=== PATIENT | male | born 1970 | race Caucasian/White ===

== ENCOUNTER 2016-11-25 13:11 | Emergency (ER) | payer OTHER, SELFPAY ==
[~2016-11-25 13:11] MED LIST: Iopamidol 370 76% 100 ML VIAL ONE; Iopamidol 370 76% 50 ML VIAL FS ONE
[2016-11-25 13:31] LABS: Bilirubin Negative (Negative); Blood, Urine Negative (Negative); Clarity Clear (Clear); Glucose, Urine (Dipstick) Negative (Negative); Leukocyte Negative (Negative); Nitrite Negative (Negative); Protein, Urine (Dipstick) Negative (Neg-Trace); Specific Gravity, Urine 1.015 (1.005-1.030); Urobilinogen 0.2 mg/dL (0.2-1.0); pH, Urine 5.5 (5.0-9.0)
[2016-11-25] MEDS ORDERED: Ketorolac Tromethamine 60 MG/2 ML VIAL ONE (13:40)
[2016-11-25] MEDS ORDERED: HYDROcodone/Acetaminophen 10/325 mg Tablet ONE (13:40)
[2016-11-25 14:53] LABS: #Eosinphils 0.1 thou/uL (0.0-0.7); #Lymphocytes 1.7 thou/uL (1.20-3.40); #Monocytes 0.5 thou/uL (0.11-0.59); #Neutrophils 5.6 thou/uL (1.40-6.50); %Basophils 0.5 % (0.0-1.0); %Eosinophils 1.4 % (0.0-10.0); %Lymphocytes 21.5 % (21.0-51.0); %Monocytes 6.7 % (0.0-10.0); %Neutrophils 69.9 % (42.0-75.0); Hemoglobin 15.5 g/dL (14.0-18.0); Mean Corpuscular HGB CONC 32.7 g/dL (32.0-36.0); Mean Corpuscular Hemoglobin 30.4 pg (27.0-31.0); Platelet Count 287 thou/uL (130-400); RBC Distribution Width 12.7 % (11.5-14.5)
[2016-11-25 15:12] LABS: ALT (SGPT) 14 U/L (0-55); AST (SGOT) 13 U/L (5-34); Albumin 4.3 g/dL (3.5-5.0); Alkaline Phosphatase 63 U/L (40-150); Anion Gap 11 mmol/L (10-20); BUN (Urea Nitrogen) 15 mg/dL (8.9-20.6); Bilirubin, Total 0.3 mg/dL (0.2-1.2); Calc. Creatinine Clearance 0 mL/min (70-130); Calcium 9.4 mg/dL (7.8-10.44); Carbon Dioxide 29 mmol/L (22-29); Chloride 104 mmol/L (98-107); Estimated GFR-MDRD Greater than 90; Globulin 3.4 g/dL (2.4-3.5); Glucose 94 mg/dL (70-105); Lipase 34 U/L (8-78); Potassium 4.8 mmol/L (3.5-5.1); Protein, Total 7.7 g/dL (6.0-8.3); Sodium 139 mmol/L (136-145)
[2016-11-25] MEDS ORDERED: Sodium Chloride 0.9% 100 ML ONE (17:38)
[2016-11-25] MEDS ORDERED: Piperacillin/Tazobactam 3.375 GM VIAL ONE (17:38)
--- NOTE | 2016-11-25 22:00 | CT ---
CT ABDOMEN AND PELVIS WITHOUT CONTRAST 11/25/[address] of the abdomen and pelvis was done initially without oral or IV contrast. Because the find ings on this study, a subsequent study with contrast was done. On this portion of the study, axial s lices were acquired, then coronal reconstructions were done. An area of linear scarring or atelectas is is seen in the left lung base. There are no effusions. The liver is a bit generous in size, but no space occupying lesions of concern were found. The splee n is normal in size. A calcification is seen in the liver. The kidneys show no sign of mass or hydro nephrosis. No renal calculi were seen. The area around the head of the pancreas is rather prominent. Because no contrast was given, I canno t separate out if this is an opacified bowel or pathology in the pancreatic head. Because of this, f urther workup is needed. There is no sign of adrenal mass. The aorta shows no aneurysm. The bowel pattern is nonspecific with no distended loops to suggest obstruction. There is a conside rable amount of fecal material in the colon. No free air or free fluid was seen. No gross inflammato ry changes were seen around bowel. CT of the pelvis showed no pelvic masses, fluid collections, or other acute changes. The urinary zoe dder wall is mildly thickened but is uniform in nature and might be due to the bladder being only pa rtially distended. IMPRESSION: 1. Mild constipation. 2. Prominence of the area around the pancreatic head. See contrast CT to follow. 3. No evidence of urinary tract obstruction. POS: HOME
--- NOTE | 2016-11-25 22:09 | CT ---
CT ABDOMEN AND PELVIS WITH CONTRAST 11/25/[address] of the abdomen and pelvis was done with both oral and IV contrast following the initial no ncontrast scan that showed questionable findings around the pancreatic head. Venous phase and arteri al phase postcontrast images were obtained in the axial plane. Coronal reconstructions of venous pha se images were subsequently done. Comparison is made with the noncontrast study done immediately prior to it. The lung bases are clear except for some linear scarring or atelectasis in the left base. The liver is generous in size, but contain no space occupying lesions. A subcentimeter cyst is suggested in th e left lobe. The spleen is not enlarged. Regarding the pancreas, I do not see any evidence of mass. The area of prominence around the pancrea tic head on the noncontrast study seems to be a combination of unopacified bowel, a generous size pa ncreas overall, and prominent vasculature in the region. The portal vein is rather large but no defe cts are seen within it. Thus, no pathology here was appreciated. No calcifications were seen in the gallbladder. The kidneys showed no solid mass or hydronephrosis, but there does appear to be a cyst in the lower portion of the left kidney. There are quite a few air fluid levels in small bowel which are arranged in a nonspecific fashion. This is more typical of an ileus than an obstruction. No loo ps are greatly distended. There is a large amount of fecal material in the colon, however. There wer e no convincing findings of diverticulitis. No free air or free fluid was seen. CT of the pelvis showed no pelvic masses, fluid collections or inflammatory changes. The urinary zoe dder is much better distended on this study and the wall is less thick. IMPRESSION: 1. The area of prominence around the pancreatic head is shown to be due to unopacified structur es. No pancreatic mass was seen. 2. Nonspecific bowel gas pattern with mild constipation. POS: HOME
== END 2016-11-25 18:20 | disposition home or self-care (01) ==
LOC: BURERS 13:11
DX: K57.92 Diverticulitis of intestine, part unspecified, without perforation or abscess without bleeding (principal); K57.00 Diverticulitis of small intestine with perforation and abscess without bleeding; F17.210 Nicotine dependence, cigarettes, uncomplicated
CPT/HCPCS: 74176; 74177; 80053; 81003; 83690; 85025; 96361; 96365; 96372; A4216; J1885; J2543; J7050

== ENCOUNTER 2017-04-21 08:35 | Emergency (ER) | payer SELFPAY ==
[2017-04-21] MEDS ORDERED: Iopamidol 370 76% 100 ML VIAL ONE (09:00)
[2017-04-21 09:49] LABS: #Basophils 0.1 thou/uL (0.0-0.2); #Eosinphils 0.2 thou/uL (0.0-0.7); #Lymphocytes 1.9 thou/uL (1.20-3.40); #Monocytes 1.3 thou/uL (0.11-0.59); #Neutrophils 8.5 thou/uL (1.40-6.50); %Basophils 0.9 % (0.0-1.0); %Eosinophils 1.3 % (0.0-10.0); %Lymphocytes 15.5 % (21.0-51.0); %Neutrophils 71.2 % (42.0-75.0); Hemoglobin 14.9 g/dL (14.0-18.0); Mean Corpuscular HGB CONC 35.3 g/dL (32.0-36.0); Mean Corpuscular Hemoglobin 32.3 pg (27.0-31.0); Mean Corpuscular Volume 91.5 fl (80.0-94.0); Platelet Count 316 thou/uL (130-400); RBC Distribution Width 11.8 % (11.5-14.5); Red Blood Cell (RBC) Count 4.62 mill/uL (4.70-6.10); White Blood Cell (WBC) Count 11.9 thou/uL (4.8-10.8)
[2017-04-21 09:52] LABS: ALT (SGPT) 27 U/L (8-55); AST (SGOT) 23 U/L (5-34); Alkaline Phosphatase 105 U/L (40-150); Anion Gap 17 mmol/L (10-20); BUN (Urea Nitrogen) 13 mg/dL (8.9-20.6); Bilirubin, Total 0.9 mg/dL (0.2-1.2); Calc. Creatinine Clearance 0 mL/min (70-130); Calcium 9.7 mg/dL (7.8-10.44); Carbon Dioxide 24 mmol/L (22-29); Chloride 100 mmol/L (98-107); Estimated GFR-MDRD Greater than 90; Globulin 3.9 g/dL (2.4-3.5); Glucose 108 mg/dL (70-105); Potassium 4.5 mmol/L (3.5-5.1); Protein, Total 7.9 g/dL (6.0-8.3); Sodium 136 mmol/L (136-145)
[2017-04-21 09:55] LABS: Blood, Urine Negative (Negative); Clarity Cloudy (Clear); Glucose, Urine (Dipstick) Negative (Negative); Leukocyte Negative (Negative); Nitrite Negative (Negative); Protein, Urine (Dipstick) 30 mg/dL (Neg-Trace); Urobilinogen 0.2 mg/dL (0.2-1.0); pH, Urine 5.5 (5.0-9.0)
[2017-04-21] MEDS ORDERED: cefTRIAXone\\ROCEPHIN 2 GM VIAL ONE (09:58)
[2017-04-21] MEDS ORDERED: Ketorolac Tromethamine 30 MG/ML VIAL ONE (09:58)
[2017-04-21] MEDS ORDERED: Enoxaparin Sodium 100 MG/ML SYRINGE ONE (09:59)
[2017-04-21] MEDS ORDERED: Sodium Chloride 0.9% 100 ML ONE (09:59)
[2017-04-21 10:05] LABS: Bacteria/HPF 1+ HPF (None Seen); Bilirubin Negative (Negative); RBC/HPF 0-3 HPF (0-3); Sperm/HPF Rare HPF (None Seen); Squamous Epithelial 0-3 HPF (0-3); WBC/HPF 0-3 HPF (0-3)
[2017-04-21 10:06] LABS: Other Microscopic Description LARGE MUCOUS STRANDS
[2017-04-21] MEDS ORDERED: Fentanyl 100 MCG/2 ML VIAL ONE (13:36)
--- NOTE | 2017-04-21 20:11 | RAD ---
CHEST TWO VIEWS 04/21/17 No prior films are available for comparison. Severe emphysematous changes are seen throughout the lungs with large bulla in the apices. Some bull ae or cavities have air fluid levels in them in the right upper lobe. There is somewhat of a conflue nt opacity in the right upper lobe that could be a mass or collapsed lung. Some generalized fibrotic changes are seen in the lungs, particularly on the right side. Lingular scarring is noted. The hear t is not enlarged. Degenerative changes are seen in the spine. The trachea is midline. IMPRESSION: 1. Severe emphysematous changes with large apical bullae. 2. Air fluid level seen in at least two bullae or cavities in the right upper lobe. 3. Nondescript confluent opacity of the right upper lobe that could be a mass or atelectatic jesus alberto ng. See CT report to follow. POS: HOME
--- NOTE | 2017-04-21 20:29 | CT ---
CT ANGIO OF THE CHEST 04/21/[address] of the chest was performed for evaluation of an abnormal chest x-ray and elevated D-dimer. Axial slices were acquired after a bolus of IV contrast. Coronal and oblique reconstructions throug h the arteries were obtained. The timing of the bolus is slightly suboptimal. Emboli in the larger p ulmonary artery branches would be ruled out, but small peripheral ones would not be seen. There were no filling defects to suggest pulmonary emboli. There was no sign of aortic dissection or aneurysm. While difficult to be certain, I was not impressed by an abundance of calcification in th e coronary arteries. No pericardial effusion was seen. There are very large bulla present in the lung apices bilaterally. There are at least two on the rig ht that have air fluid levels in them. It is difficult to tell if they are actually bulla or cavitie s. There is considerable infiltrative change in the lung around these points suggesting infection. T here is a large confluent density that radiates from the right hilum and upwards. This may just be c onsolidated lung, but one cannot exclude neoplasm in the midst of it. Elsewhere, fibrotic changes ar e seen in the lungs in general. There are no large effusions. Scans into the upper abdomen show a portion of the liver that seems generous in size. The spleen is not enlarged. No adrenal masses were seen. IMPRESSION: 1. Severe bullous emphysema, particularly for the patient's age. 2. Bullae or cavities with air fluid levels in the right upper lobe. They are thin walled. It i s likely that they are infected. 3. Large consolidated opacity in the right upper lobe that originates from the hilum and tracks superiorly. It is probably a little more likely to be consolidated/collapsed lung than actual mass, but at this point, neoplasm is not ruled out. 4. No evidence of pulmonary embolism. Pulmonary referral recommended with consideration for bronchoscopy. Findings and recommendations dis cussed with Dr. Beauchamp at 1055 on 04/21/17. POS: HOME
== END 2017-04-21 14:02 | disposition short-term general hospital (02) ==
LOC: BURERS 08:35
DX: J18.9 Pneumonia, unspecified organism (principal); J43.9 Emphysema, unspecified; F17.210 Nicotine dependence, cigarettes, uncomplicated
CPT/HCPCS: 36415; 71020; 71275; 80053; 81003; 81015; 85025; 85379; 87040; 87086; 96365; 96366; 96367; 96372; 96375; A4216; J0696; J1650; J1885; J1956; J3010; J7050